=== PATIENT | female | born 1995 | race Caucasian/White ===

== ENCOUNTER → 2017-02-12 | Outpatient (REF) | payer OTHER ==
[2017-02-12 18:44] LABS: ALBUMIN 3.7 GM/DL (3.2-5.2); ALBUMIN/GLOBULIN RATIO 1.37 (1.00-1.93); ALKALINE PHOSPHATASE 60 U/L (45-117); ALT/SGPT 12 U/L (12-78); ANION GAP 5 MEQ/L (8-16); AST/SGOT 8 U/L (7-37); BILIRUBIN,TOTAL 0.3 MG/DL (0.2-1.0); BLOOD UREA NITROGEN 8 MG/DL (7-18); CALCIUM LEVEL 8.4 MG/DL (8.5-10.1); CARBON DIOXIDE LEVEL 28 MEQ/L (21-32); CHLORIDE LEVEL 107 MEQ/L (98-107); FERRITIN 10 NG/ML (8-252); GLOMERULAR FILTRATION RATE > 60.0 (>60); GLUCOSE, FASTING 82 MG/DL (70-105); POTASSIUM SERUM 4.4 MEQ/L (3.5-5.1); SODIUM LEVEL 140 MEQ/L (136-145); TOTAL IRON BINDING CAPACITY 290 UG/DL (250-450); TOTAL PROTEIN 6.4 GM/DL (6.4-8.2)
[2017-02-12 18:47] LABS: MEAN CORPUSCULAR HEMOGLOBIN 31.8 pg (27.0-33.0); MEAN CORPUSCULAR HGB CONC 33.1 g/dl (32.0-36.5); PLATELET COUNT, AUTOMATED 266 10^3/uL (150-450); RED CELL DISTRIBUTION WIDTH 12.2 % (11.5-14.5); RETIC HEMOGLOBIN EQUIVALENT 38.1 pg (24-36); RETICULOCYTE % 1.4 % (0.5-1.5); WHITE BLOOD COUNT 6.7 10^3/uL (4.0-10.0)
[2017-02-12 18:52] LABS: FOLATE 7.6 NG/ML (>5.4); VITAMIN B12 LEVEL 398 PG/ML (247-911)
[2017-02-13 07:54] LABS: CONTROL LINE MONO INT CTR LINE PRESENT
[2017-02-16 00:06] LABS: Lyme Disease IgG/IgM Antibodie <0.91 ISR (0.00-0.90); Lyme Disease IgM Ab Quantitati <0.80 index (0.00-0.79)
== END ==
LOC: M SFHCCLAY 10:57
PROVIDERS: ATTEND Nurse Practitioner Family
DX: R53.83 Other fatigue (principal)

== ENCOUNTER → 2020-02-23 | Outpatient (REF) | payer OTHER ==
[2020-02-23 16:15] LABS: HEMATOCRIT 43.8 % (36.0-47.0); HEMOGLOBIN 14.1 g/dl (12.0-15.5); MEAN CORPUSCULAR HEMOGLOBIN 31.1 pg (27.0-33.0); MEAN CORPUSCULAR HGB CONC 32.2 g/dl (32.0-36.5); MEAN CORPUSCULAR VOLUME 96.5 fl (80.0-96.0); PLATELET COUNT, AUTOMATED 280 10^3/uL (150-450); RED BLOOD COUNT 4.54 10^6/uL (4.00-5.40); WHITE BLOOD COUNT 7.6 10^3/uL (4.0-10.0)
[2020-02-23 16:47] LABS: ALBUMIN 4.4 GM/DL (3.2-5.2); ALT/SGPT 10 U/L (12-78); BILIRUBIN,TOTAL 0.4 MG/DL (0.2-1.0); BLOOD UREA NITROGEN 14 MG/DL (7-18); CALCIUM LEVEL 9.7 MG/DL (8.5-10.1); CARBON DIOXIDE LEVEL 28 MEQ/L (21-32); CHLORIDE LEVEL 106 MEQ/L (98-107); CHOLESTEROL LEVEL 175 MG/DL (<200); CREATININE FOR GFR 0.76 MG/DL (0.55-1.30); GLOMERULAR FILTRATION RATE > 60.0 (>60); GLUCOSE, FASTING 88 MG/DL (70-100); HDL CHOLESTEROL 72 MG/DL (>40); LDL CHOLESTEROL 76 MG/DL (<100); NON-HDL-C 103 MG/DL; SODIUM LEVEL 138 MEQ/L (136-145); TOTAL PROTEIN 7.4 GM/DL (6.4-8.2); TRIGLYCERIDES LEVEL 136 MG/DL (<150)
[2020-02-23 16:53] LABS: TOTAL 25(OH) VITAMIN D 30.8 NG/ML (30.0-100.0)
== END ==
LOC: M SFHCCLAY 12:08
PROVIDERS: ATTEND Nurse Practitioner Family
DX: F90.9 Attention-deficit hyperactivity disorder, unspecified type (principal); K21.9 Gastro-esophageal reflux disease without esophagitis; Z13.6 Encounter for screening for cardiovascular disorders; Z13.89 Encounter for screening for other disorder

== ENCOUNTER 2020-04-11 21:17 | Emergency (ER) | payer OTHER ==
[~2020-04-11] VITALS: Ht 165.1 cm; Wt 59.7 kg
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
--- OUTSIDE RECORDS SUMMARY | 2020-04-11 21:25 | CCD ---
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 Ac tive 253155470 Problem BCP ( control pills) initiation Z30.011 Act magi 58328668 Problem Gastroesophageal reflux disease without esophagitis K21.9 Active 415866817 Problem Dysmenorrhea N94.6 Active 789874332 Problem Attention deficit disorder (ADD), child, 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 Active 579610577 Problem Irregular menses N92.6 Active 51298537 Problem Personal history of other specified diseases Z87.8 98 Active 493294601 Problem Other general counseling and advice for contrace ptive management Z30.09 Active 74039273 Problem Anxiety F41.9 Active 84489875 Problem Multiple allergies Z88.9 Active 242887104 Problem Dyspareunia in female N94.10 Active 09402162 ALLERGIES No Known Allergies ENCOUNTERS from 1995 to 2020-03-27 Encounter Location Date Provider Diagnosis [facility] [place] [address] 04 Mar Darcie Curry IMMUNIZATIONS Vaccine Route Administration Date Status Meningococcal IM Intramuscular October 06, 2013 Administered Influenza (6mo & up) Fluzone IM Intramuscular Feb 09, 2016 Ad ministered Influenza (6mo & up) Fluzone IM Intramuscular Mar 31, 2014 Ad ministered Influenza (6mo & up) Fluzone IM Intramuscular Mar 25, 2013 Ad ministered Influenza (6mo & up) Fluzone IM Intramuscular Apr 02, 2012 Ad ministered SOCIAL HISTORY Sex Assigned At : Social History Observation Description Sex Assigned At Unknown Audit Question Answer Notes Total Score: 3 Interpretation: Alcohol Education Drug and Alcohol Question Answer Notes Total Score: 0 Interpretation: No problems reported REASON FOR REFERRAL No Information VITAL SIGNS No information MEDICATIONS Medication SIG (Take, Route, Frequency, Duration) Notes Start Da te End Date Status Adderall 10 MG 1 tablet Orally Daily CODE B Dec, Active Zoloft 100 MG 1 1/2 tablet Orally Once a day for 90 days Active Singulair 10 MG 1 tablet in the evening Orally Once a day Active Adderall XR 30 MG 1 capsule in the morning Orally Once a d ay MDD=1 for 30 Days Feb, Active Protonix 40 MG 1 tablet Orally bid A ctive Montelukast Sodium 10 MG TAKE 1 TABLET DAILY IN THE EVENING Active PROCEDURES No Information RESULTS No Results REASON FOR VISIT No Information MEDICAL (GENERAL) HISTORY Type Description Date Medical History ADD Medical History Hx of concussion Medical History migraines, no visual changes Medical History Anxiety Medical History Postconcussion syndrome Surgical History T&A 2001 Surgical History Tubes in ears 2001 Surgical History 2 bottom wisdom teeth extracted 03/22/14 Surgical History appendectomy 05/2015 Surgical History TOP RIGHT WISDOM TOOTH REMOVED 03/26/16 Hospitalization History Surgery Goals Section No Information Health Concerns No Information MEDICAL EQUIPMENT No Information MENTAL STATUS No Information FUNCTIONAL STATUS No Information ASSESSMENTS No Information PLAN OF TREATMENT Medication Medication Name Sig Start Date Stop Date Adderall 10 MG 1 tablet Orally Daily CODE B Dec, Protonix 40 MG 1 tablet Orally bid Montelukast Sodium 10 MG TAKE 1 TABLET DAILY IN THE EVENING Adderall XR 30 MG 1 capsule in the morning Orally Once a d ay MDD=1 for 30 Days Feb, Zoloft 100 MG 1 1/2 tablet Orally Once a day for 90 days Singulair 10 MG 1 tablet in the evening Orally Once a day Next Appt Details Provider Name:Darcie Pappas Patricio, 2020-08-25 07:30:00 AM, [address] [place], [address], Insurance Providers Payer Name Payer Address Payer Phone Insured Name Patient Relati onship to Insured Coverage Start Date Coverage End Date [facility] [place] [address] [facility] [phone] [place] self
--- OUTSIDE RECORDS SUMMARY | 2020-04-11 21:25 | CCD ---
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 Ac tive 878449495 Problem BCP ( control pills) initiation Z30.011 Act magi 36261118 Problem Gastroesophageal reflux disease without esophagitis K21.9 Active 880676379 Problem Dysmenorrhea N94.6 Active 834124467 Problem Attention deficit disorder (ADD), child, 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 Active 566079932 Problem Irregular menses N92.6 Active 37483110 Problem Personal history of other specified diseases Z87.8 98 Active 906227946 Problem Other general counseling and advice for contrace ptive management Z30.09 Active 05119757 Problem Anxiety F41.9 Active 75406363 Problem Multiple allergies Z88.9 Active 830272884 Problem Dyspareunia in female N94.10 Active 30405922 ALLERGIES No Known Allergies ENCOUNTERS from 1995 to 2020-01-13 Encounter Location Date Provider Diagnosis [facility] [place] [address] Dec Darcie Curry Attention deficit disorder (ADD), child, with hyperactivity F90.9 IMMUNIZATIONS Vaccine Route Administration Date Status Meningococcal [...] Unknown Audit Question Answer Notes Total Score: 1 Interpretation: Alcohol Education Drug and Alcohol Question Answer Notes Total Score: 0 Interpretation: No problems reported REASON FOR REFERRAL No Information VITAL SIGNS No information MEDICATIONS Medication SIG (Take, Route, Frequency, Duration) Start Date En d Date Status Zoloft 100 MG 1 1/2 tablet Orally Once a day Active Adderall XR 20 MG 1 capsule in the morning Ora lly Once a day CODE B for 90 day(s) Jun, Active Montelukast Sodium 10 MG TAKE 1 TABLET DAILY IN THE EVENING Active Protonix 40 MG 1 tablet Orally bid Active Adderall 10 MG 1 tablet Orally Daily CODE B for 90 days Dec, Active Singulair 10 MG 1 tablet in the evening Orally Once a day Active PROCEDURES No Information RESULTS No Results REASON FOR VISIT Refills MEDICAL (GENERAL) HISTORY Type Description Date Medical [...] No Information FUNCTIONAL STATUS No Information ASSESSMENTS Encounter Date Diagnosis Notes Dec, Attention deficit disorder ( ADD), child, with hyperactivity (ICD-10 - F90.9) PLAN OF TREATMENT Medication Medication Name Sig Start Date Stop Date Zoloft 100 MG 1 1/2 tablet Orally Once a day Adderall 10 MG 1 tablet Orally Daily CODE B for 90 days Dec Singulair 10 MG 1 tablet in the evening Orally Once a day Protonix 40 MG 1 tablet Orally bid Adderall XR 20 MG 1 capsule in the morning Ora lly Once a day CODE B for 90 day(s) Jun, Montelukast Sodium 10 MG TAKE 1 TABLET DAILY IN THE EVENING Insurance Providers Payer Name Payer Address Payer Phone Insured Name Patient Relati onship to Insured Coverage Start Date Coverage End Date [facility] [place] [address] [facility] [phone] self
--- OUTSIDE RECORDS SUMMARY | 2020-04-11 21:25 | CCD ---
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 Ac tive 627915578 Problem BCP ( control pills) initiation Z30.011 Act magi 15831459 Problem Gastroesophageal reflux disease without esophagitis K21.9 Active 723391995 Problem Dysmenorrhea N94.6 Active 906244506 Problem Attention deficit disorder (ADD), child, 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 [place] [address] Jan Darcie Curry IMMUNIZATIONS Vaccine Route Administration Date [...] Assigned At Unknown Audit Question Answer Notes Interpretation: Alcohol Education Total Score: 1 Drug and Alcohol Question Answer Notes Interpretation: No problems reported Total Score: 0 REASON FOR REFERRAL No Information VITAL SIGNS No information MEDICATIONS Medication SIG (Take, Route, Frequency, Duration) Notes Start Da te End Date Status Zoloft 100 MG 1 1/2 tablet Orally Once a day Active Montelukast Sodium 10 MG TAKE 1 TABLET DAILY IN THE EVENING Active Singulair 10 MG 1 tablet in the evening Orally Once a day Active Adderall XR 20 MG 1 capsule in the morning Ora lly Once a day CODE B for 90 day(s) Jan, Active Adderall 10 MG 1 tablet Orally Daily CODE B for 90 days 2 1 Dec, 2019 Active Protonix 40 MG 1 tablet Orally bid A ctive PROCEDURES No Information RESULTS No Results REASON FOR VISIT refill MEDICAL (GENERAL) HISTORY Type Description Date Medical [...] Daily CODE B for 90 days Dec Protonix 40 MG 1 tablet Orally bid Adderall XR 20 MG 1 capsule in the morning Ora lly Once a day CODE B for 90 day(s) Jan, Montelukast Sodium 10 MG TAKE 1 TABLET DAILY IN THE EVENING Singulair 10 MG 1 tablet in the evening Orally Once a day Next Appt Details Provider Name:Darcie Elyse Patricio, 2020-02-23 11:30:00 AM, [address] [place], [address], Insurance Providers Payer Name Payer Address Payer Phone Insured Name Patient Relati onship to Insured Coverage Start Date Coverage End Date [facility] [id number] [facility] [phone] self
--- OUTSIDE RECORDS SUMMARY | 2020-04-11 21:25 | CCD ---
Author Author [facility] Organization 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 Ac tive 141795357 Problem BCP ( control pills) initiation Z30.011 Act magi 92331217 Problem Gastroesophageal reflux disease without esophagitis K21.9 Active 863120456 Problem Dysmenorrhea N94.6 Active 395064387 Problem Attention deficit disorder (ADD), child, 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 Active 805722990 Problem Irregular menses N92.6 Active 72176548 Problem Personal history of other specified diseases Z87.8 98 Active 388701282 Problem Other general counseling and advice for contrace ptive management Z30.09 Active 40526666 Problem Anxiety F41.9 Active 49437654 Problem Multiple allergies Z88.9 Active 139977157 Problem Dyspareunia in female N94.10 Active 43258833 ALLERGIES No Known Allergies ENCOUNTERS from 1995 to 2020-02-27 Encounter Location Date Provider Diagnosis [facility] [place] [address] Feb Darcie Curry Attention deficit disorder (ADD), child, with hyperactivity F90.9 ; Gastroesophageal reflux disease without esophagitis K21.9 ; Encounter for screening for other disorder Z13.89 and Encounter for screening for cardiovascular disorders Z13.6 IMMUNIZATIONS Vaccine Route Administration Date Status Meningococcal [...] REASON FOR REFERRAL No Information VITAL SIGNS Weight 142 lbs Feb, Height 65 in Feb, BMI 23.63 kg/m2 Feb, Heart Rate 98 /min Feb, Respiratory Rate 20 /min Feb, Temperature 98.0 degrees Fahrenheit Feb, Oximetry 100%RA Feb, Blood pressure systolic 129 mm Hg Feb, Blood pressure diastolic 85 mm Hg Feb, MEDICATIONS Medication SIG (Take, Route, Frequency, Duration) Notes Start Da te End Date Status Adderall 10 MG 1 tablet Orally Daily CODE B Dec, Active Singulair 10 MG 1 tablet in the evening Orally Once a day Active Montelukast Sodium 10 MG TAKE 1 TABLET DAILY IN THE EVENING Active Zoloft 100 MG 1 1/2 tablet Orally Once a day Active Protonix 40 MG 1 tablet Orally bid A ctive Adderall XR 30 MG 1 capsule in the morning Orally Once a d ay MDD=1 for 30 Days Feb, Active PROCEDURES No Information RESULTS Component Value Reference Range CBC - Complete Blood Count Reviewed date:03/03/2020 13:12:12 Interpretation:Abnormal Performing Lab:[facility], [facility] [address] [address] , ,[place] [address] WHITE BLOOD COUNT 7.6 4.0-10.0 RED BLOOD COUNT 4.54 4.00-5.40 HEMOGLOBIN 14.1 12.0-15.5 HEMATOCRIT 43.8 36.0-47.0 MEAN CORPUSCULAR VOLUME 96.5 80.0-96.0 MEAN CORPUSCULAR HEMOGLOBIN 31.1 27.0-33.0 MEAN CORPUSCULAR HGB CONC 32.2 32.0-36.5 RED CELL DISTRIBUTION WIDTH 11.9 11.5-14.5 PLATELET COUNT, AUTOMATED 280 150-450 Comprehensive Metabolic Profile (CMP) Reviewed date:03/03/2020 13:12:12 Interpretation:Abnormal Performing Lab:[facility] LAB[facility] [address] [address] , ,[place] [address] GLUCOSE, FASTING 88 70-100 BLOOD UREA NITROGEN 14 7-18 CREATININE FOR GFR 0.76 0.55-1.30 GLOMERULAR FILTRATION RATE > 60.0 >60 SODIUM LEVEL 138 136-145 POTASSIUM SERUM 5.0 3.5-5.1 CHLORIDE LEVEL 106 98-107 CARBON DIOXIDE LEVEL 28 21-32 CALCIUM LEVEL 9.7 8.5-10.1 AST/SGOT 11 7-37 ALT/SGPT 10 12-78 ALKALINE PHOSPHATASE 46 45-117 BILIRUBIN,TOTAL 0.4 0.2-1.0 TOTAL PROTEIN 7.4 6.4-8.2 ALBUMIN 4.4 3.2-5.2 ALBUMIN/GLOBULIN RATIO 1.5 1.2-2.2 LIPID PANEL (CARDIAC RISK) Reviewed date:03/03/2020 13:12:12 Interpretation:Normal Performing Lab:[facility] LAB[facility] [address] [address] , ,[place] [address] TRIGLYCERIDES LEVEL 136 <150 CHOLESTEROL LEVEL 175 <200 HDL CHOLESTEROL 72 >40 LDL CHOLESTEROL 76 <100 NON-HDL-C 103 CHOLESTEROL RISK RATIO 2.430 <5 VITAMIN D 25-HYDROXY Reviewed date:03/03/2020 13:12:12 Interpretation:Normal Performing Lab:[facility] [address] [address] , ,[place] [address] TOTAL 25(OH) VITAMIN D 30.8 30.0-100.0 REASON FOR VISIT check up MEDICAL (GENERAL) HISTORY Type Description Date Medical [...] STATUS No Information ASSESSMENTS Encounter Date Diagnosis Assessment Notes Treatment Notes Treatm ent Clinical Notes Feb, Attention deficit disorder ( ADD), child, with hyperactivity (ICD-10 - F90.9) Feb, Gastroesophageal reflux dise ase without esophagitis (ICD-10 - K21.9) Feb, Encounter for screening for other disorder (ICD- 10 - Z13.89) Feb, Encounter for screening for cardiovascular disorders (ICD-10 - Z13.6) Feb, Other Treatment options discussed with patient. PLAN OF TREATMENT Medication Medication Name Sig Start Date Stop Date Adderall 10 MG 1 tablet Orally Daily CODE B Dec, Protonix 40 MG 1 tablet Orally bid Adderall XR 30 MG 1 capsule in the morning Orally Once a d ay MDD=1 for 30 Days Feb, Zoloft 100 MG 1 1/2 tablet Orally Once a day Singulair 10 MG 1 tablet in the evening Orally Once a day Montelukast Sodium 10 MG TAKE 1 TABLET DAILY IN THE EVENING Treatment Notes Test Name Order Date VITAMIN D 25-HYDROXY 2020-02-27 Comprehensive Metabolic Profile (CMP) 2020-02-27 CBC - Complete Blood Count 2020-02-27 LIPID PANEL (CARDIAC RISK) 2020-02-27 Next Appt Details 6 Months, send letter re labs Reason: Provider Name:Darcie Curry, 2020-08-25 07:30:00 AM, [place], [address], Insurance Providers Payer Name Payer Address Payer Phone Insured Name Patient Relati onship to Insured Coverage Start Date Coverage End Date [facility] [address] [address] [facility] [phone] self
[2020-04-11] MEDS ORDERED: AMPH1CAP5 PO (21:29)
[2020-04-11] MEDS ORDERED: SERT-138 PO (21:29)
[2020-04-11] MEDS ORDERED: MONT10TA10 PO (21:29)
[2020-04-11] MEDS ORDERED: PANT40TA29 PO (21:29)
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
[2020-04-11] MEDS ORDERED: SIMETHICONE 80MG CHEW TAB PO STA (23:51)
[2020-04-12] MEDS ORDERED: DICYCLOMINE 10 MG CAP PO ONE
[2020-04-12] MEDS ORDERED: ONDANSETRON 4MG/2ML VIAL IV ONE
[2020-04-12 00:16] LABS: BASO % 0.2 % (0.0-1.0); EOS # 0.1 10^3/uL (0.0-0.5); EOS % 0.5 % (0.0-3.0); HEMATOCRIT 43.4 % (36.0-47.0); HEMOGLOBIN 14.5 g/dl (12.0-15.5); LYMPH # 1.7 10^3/uL (1.5-5.0); LYMPH % 11.1 % (24.0-44.0); MEAN CORPUSCULAR HGB CONC 33.4 g/dl (32.0-36.5); MEAN CORPUSCULAR VOLUME 95.8 fl (80.0-96.0); MONO # 0.8 10^3/uL (0.0-0.8); MONO % 5.3 % (0.0-5.0); NEUTROPHILS # 12.7 10^3/uL (1.5-8.5); NEUTROPHILS % 82.5 % (36.0-66.0); PLATELET COUNT, AUTOMATED 228 10^3/uL (150-450); RED BLOOD COUNT 4.53 10^6/uL (4.00-5.40); WHITE BLOOD COUNT 15.4 10^3/uL (4.0-10.0)
[2020-04-12 00:46] LABS: BILIRUBIN,DIRECT 0.2 MG/DL (0.0-0.2); BILIRUBIN,TOTAL 0.8 MG/DL (0.2-1.0); TOTAL PROTEIN 6.9 GM/DL (6.4-8.2)
[2020-04-12] MEDS ORDERED: NS 1,000 ML IV ONE (01:00)
[2020-04-12] MEDS ORDERED: POTASSIUM CHLORIDE 10 MEQ SR TABLET PO ONE (01:00)
--- NOTE | 2020-04-12 01:24 | REPVR ---
PROCEDURE INFORMATION: Exam: XR Complete Acute Abdomen Series Exam date and time: 04/12/2020 12:57 AM Age: 25 years old Clinical indication: Abdominal pain; Acute; Additional info: Left sided abd pain, diarrhea, nausea TECHNIQUE: Imaging protocol: XR complete acute abdomen series, including 2 or more views of the abdomen and a single view chest. COMPARISON: CR Chest, 2 view PA, Lat 07/27/2015 1:28 AM FINDINGS: Lungs: Normal. No consolidation. Pleural space: Normal. No pneumothorax. Heart/Mediastinum: Normal. No cardiomegaly. Gastrointestinal tract: Mild gas in the GI tract, primarily in the stomach and colon without abnormal dilatation. No abnormal air-fluid levels. Intraperitoneal space: No free air. Bones/joints: Normal. No acute fracture. Soft tissues: Normal. IMPRESSION: 1. Negative chest without change from 07/27/2015. 2. Negative abdomen with mild gas which is within normal limits. Electronically signed by: Aj Vizcarra On 04/12/2020 01:24:04 AM
[2020-04-12] MEDS ORDERED: KETOROLAC 30 MG/ML 1ML VIAL IV ONE (01:45)
[2020-04-12] MEDS ORDERED: SIME180C PO (01:46)
[2020-04-12] MEDS ORDERED: DICY10CA13 PO (01:46)
[2020-04-12] MEDS ORDERED: ONDA4TAB6 PO (01:49)
[2020-04-12] MEDS ORDERED: MACR100C43 PO (01:49)
[2020-04-12] MEDS ORDERED: NITROFURANTOIN (MACROBID) 100 MG CAP PO ONE (02:00)
[2020-04-12 02:32] VITALS: BP 122/60
== END 2020-04-12 02:33 | disposition home or self-care (01) ==
LOC: M ED 21:17
DX: N39.0 Urinary tract infection, site not specified (principal); R10.9 Unspecified abdominal pain; R19.7 Diarrhea, unspecified; R11.0 Nausea; Z79.899 Other long term (current) drug therapy
CPT/HCPCS: 74021; 80047; 80076; 81001; 83690; 84702; 85025; 87086; 96361; 96374; 96375; 99284; J1885; J2405

== ENCOUNTER → 2021-03-12 | Outpatient (REF) | payer OTHER ==
[~2021-03-12] MED LIST: AMPH1CAP5 PO; DICY10CA13 PO; MACR100C43 PO; MONT10TA10 PO; ONDA4TAB6 PO; PANT40TA29 PO; SERT-138 PO; SIME180C25 PO
[2021-03-13 11:39] LABS: HEMATOCRIT 41.7 % (36.0-47.0); HEMOGLOBIN 13.8 g/dl (12.0-15.5); MEAN CORPUSCULAR HEMOGLOBIN 31.7 pg (27.0-33.0); MEAN CORPUSCULAR HGB CONC 33.1 g/dl (32.0-36.5); MEAN CORPUSCULAR VOLUME 95.6 fl (80.0-96.0); PLATELET COUNT, AUTOMATED 310 10^3/uL (150-450); RED BLOOD COUNT 4.36 10^6/uL (4.00-5.40); WHITE BLOOD COUNT 8.5 10^3/uL (4.0-10.0)
[2021-03-13 12:21] LABS: FREE T4 1.08 NG/DL (0.76-1.46); THYROID STIMULATING HORMONE 0.847 uIU/ML (0.358-3.740)
== END ==
LOC: M SFHCCLAY 14:20
PROVIDERS: ATTEND Family Medicine
DX: R04.0 Epistaxis (principal); R53.83 Other fatigue; F41.9 Anxiety disorder, unspecified; F90.1 Attention-deficit hyperactivity disorder, predominantly hyperactive type